=== PATIENT | male | born 1970 | race African-American/Black ===

== ENCOUNTER 2017-03-26 08:25 | Emergency (ER) | payer SELFPAY ==
[2017-03-26 08:33] VITALS: BP 128/85
[2017-03-26 09:10] LABS: APPEARANCE,URINE CLEAR; BILIRUBIN,URINE NEGATIVE (NEGATIVE); GLUCOSE, URINE NEGATIVE (NEGATIVE); KETONES,URINE NEGATIVE (NEGATIVE); LEUKOCYTE ESTERASE,URINE NEGATIVE (NEGATIVE); NITRITE,URINE NEGATIVE (NEGATIVE); PROTEIN,URINE >=500 mg/dL (NEGATIVE); URINE SPECIFIC GRAVITY 1.017; UROBILINOGEN,URINE NEGATIVE mg/dL (<2.0)
[2017-03-26] MEDS ORDERED: KETOROLAC TROMETHAMINE 60 MG/2 ML SDV IM ONE (10:21)
--- NOTE | 2017-03-26 10:33 | ER Document Report ---
ED Neck/Back Problem - General Chief Complaint: Back Pain Stated Complaint: BACK PAIN Time Seen by Provider: 03/26/17 09:51 Notes: 46 yo male c/o low back pain x 2 weeks. reports pain goes across his lower back. denies radiculopathy or paresthesias. no fever. no bowel/bladder dysfunction. pt denies any hx/o of cancer or recent tattoos. denies any trauma. pt was seen in a local urgent care for same, treated with muscle relaxants without relief. pt denies any difficutly walking. says pain is worse at night. - HPI Patient complains to provider of: Pain Onset: Other - 2 wk Onset: Gradual Timing: Constant Quality of pain: Achy Recent injury: No Associated symptoms: None, Lower back pain. denies: Chills, Fever, Incontinence , Motor loss, Numbness/tingling, Radiation to leg, Sensory loss, Unable to urinate Exacerbated by: Other - movement, changing postions Relieved by: Nothing Similar symptoms previously: Yes Recently seen / treated by doctor: Yes - urgent care Past Medical History - General Information source: Patient - Social History Smoking Status: Current Every Day Smoker Chew tobacco use (# tins/day): No Frequency of alcohol use: Social Drug Abuse: Marijuana Lives with: Family Family History: Reviewed & Not Pertinent - Past Medical History Cardiac Medical History: Reports: Other - pacer for bradycardia Renal/ Medical History: Denies: Hx Peritoneal Dialysis Past Surgical History: Reports: Hx Cardiac Surgery - PACEMAKER - Immunizations Hx Diphtheria, Pertussis, Tetanus Vaccination: No Review of Systems - Review of Systems Constitutional: No symptoms reported EENT: No symptoms reported Cardiovascular: No symptoms reported Respiratory: No symptoms reported Gastrointestinal: No symptoms reported Genitourinary: No symptoms reported Male Genitourinary: No symptoms reported Musculoskeletal: See HPI Skin: No symptoms reported Hematologic/Lymphatic: No symptoms reported Neurological/Psychological: No symptoms reported Physical Exam - Vital signs Vitals: Temp Pulse Resp BP Pulse Ox 98.6 F 64 18 128/85 H 98 03/26/17 08:30 03/26/17 08:30 03/26/17 08:30 03/26/17 08:30 03/26/17 08:30 Interpretation: Normal - General General appearance: Appears well, Alert - HEENT Head: Normocephalic, Atraumatic Eyes: Normal Pupils: PERRL - Respiratory Respiratory status: No respiratory distress Chest status: Nontender Breath sounds: Normal Chest palpation: Normal - Cardiovascular Rhythm: Regular Heart sounds: Normal auscultation Murmur: No - Abdominal Inspection: Normal Distension: No distension Bowel sounds: Normal Tenderness: Nontender Organomegaly: No organomegaly - Back Back: Tender - bilat lumbar paraspinal tenderness. no vertebral tenderness. neg SLT.. No: CVA tenderness, Vertebra tenderness - Extremities General upper extremity: Normal inspection, Nontender, Normal color, Normal ROM , Normal temperature General lower extremity: Normal inspection, Nontender, Normal color, Normal ROM , Normal temperature, Normal weight bearing. No: Sonya's sign - Neurological Neuro grossly intact: Yes Cognition: Normal Orientation: AAOx4 [place] Coma Scale Eye Opening: Spontaneous Simeon Coma Scale Verbal: Oriented [place] Coma Scale Motor: Obeys Commands Simeon Coma Scale Total: 15 Speech: Normal Motor strength normal: LUE, RUE, LLE, RLE Sensory: Normal - Psychological Associated symptoms: Normal affect, Normal mood - Skin Skin Temperature: Warm Skin Moisture: Dry Skin Color: Normal Course - Re-evaluation Re-evalutation: 03/26/17 10:35 46 yo healthy male with low back pain. no vertebral tenderness. pt has no s/s of spinal cord compression, cauda equina, infection, anerysm or other serious etiology. pt is neurologically intact, independently and steadily ambulatory without paresthesia. Geven the extremely low risk of these diagnoses, further testing is not indicated. Home care, F/u with PCM, ED return precautiions discussed with pt. pt verbalizes understanding and agrees with plan. short course of pain med, muscle relaxant and anti inflammatory med provided. pt stable for discharge 03/26/17 10:57 urinalysis significant for large protein. this finding discussed with Dr Mills who agrees there is no relation with proteinuria and pt's symptoms. pt is exhibiting no s/s rhabdomyolisis, has no hx of DM or renal dysfunction. pt has not CVAT. pt made aware of finding and recommended f/u with PCM for repeat urinalysis. pt acknowledges understanding - Vital Signs Vital signs: Temp Pulse Resp BP Pulse Ox 98.6 F 64 18 128/85 H 98 03/26/17 08:30 03/26/17 08:30 03/26/17 08:30 03/26/17 08:30 03/26/17 08:30 - Laboratory Laboratory results interpreted by me: 03/26/17 08:50 Urine Protein >=500 H Discharge - Discharge Clinical Impression: Low back pain Qualifiers: Chronicity: acute Back pain laterality: bilateral Sciatica presence: without sciatica Qualified Code(s): M54.5 - Low back pain Condition: Stable Disposition: HOME, SELF-CARE Instructions: Ice Packs ([facility]), Low Back Pain ([facility]), Muscle Relaxers ([facility]), Oral Narcotic Medication ([facility]), Toradol Injection ([facility]), Warm Packs ([facility]) Additional Instructions: Your back pain seems muscular in origin. Medications will focus on muscle inflammation Alternate ice/heat to sore areas Take pain medications sparingly only for severe pain Follow up with your primary care for further evaluation if pain persists Your urinalysis shows high protein today Please follow up with your primary care for further evaluation of this finding I do not think this is related to the discomfort you are having today Prescriptions: Hydrocodone/Acetaminophen [Ambrose 5-325 mg Tablet] 1 tab PO Q4H PRN #10 tablet PRN Reason: Ibuprofen [Motrin 800 Mg Tablet] 800 mg PO Q6H #20 tablet Methocarbamol [Robaxin 500 Mg Tablet] 1,000 mg PO Q6 #30 tablet
== END 2017-03-26 10:44 | disposition home or self-care (01) ==
LOC: ER 08:25
DX: M54.5 Low back pain (principal); F17.200 Nicotine dependence, unspecified, uncomplicated
CPT/HCPCS: 99283; 96372; 81001; J1885

== ENCOUNTER → 2017-09-10 | Outpatient (CLI) | payer SELFPAY ==
[2017-09-10 10:10] LABS: ARTERIAL BLOOD BASE EXCESS 1.5 mmol/L; ARTERIAL BLOOD H2CO3 0.99 mmol/L (1.05-1.35); ARTERIAL BLOOD HCO3 24.5 mmol/L (20-26); ARTERIAL BLOOD O2 SATURATION 98.8 % (94-98); ARTERIAL BLOOD PH 7.49 (7.35-7.45); ARTERIAL BLOOD PO2 128.2 mmHg (80-100); ARTERIAL BLOOD TOTAL CO2 25.5 mmol/L (23-27)
[2017-09-10 10:42] LABS: ARTERIAL BLOOD FIO2 ROOM AIR
--- NOTE | 2017-09-15 08:37 | PULMONARY FUNCTION TEST ---
DATE OF SERVICE: 09/10/2017 THE VITAL CAPACITY IS NORMAL. THE EXPIRATORY FLOW RATES ARE NORMAL. THE FEV1/VC IS 79%, PREDICTED: 80% LUNG VOLUMES BY NITROGEN WASH OUT METHOD SHOW: TLC IS 89% OF PREDICTED FRC IS 99% OF PREDICTED RV IS 55% OF PREDICTED THE DLCO IS 19.4, 58% OF PREDICTED. THE RV/TLC RATIO IS 19% PREDICTED 32% IMPRESSION: GOOD PATIENT EFFORT. ALTHOUGH THE VC AND FEV1 ARE BOTH NORMAL, THE DECREASE IN FEV1/VC SUGGESTS A SLIGHT OBSTRUCTIVE DEFECT. LUNG VOLUMES ARE NORMAL DIFFUSING CAPACITY IS MODERATELY DECREASED. CC: HEATH GONZALES MD > MEREDITH
== END ==
LOC: RT 08:46
PROVIDERS: ATTEND Internal Medicine Hematology & Oncology
DX: Z13.83 Encounter for screening for respiratory disorder NEC (principal); R06.02 Shortness of breath; C81.90 Hodgkin lymphoma, unspecified, unspecified site; R91.8 Other nonspecific abnormal finding of lung field; Z95.0 Presence of cardiac pacemaker; D57.3 Sickle-cell trait
CPT/HCPCS: 36600; 82803; 94010; 94727; 94729

== ENCOUNTER 2017-09-16 09:42 | Outpatient (CLI) | payer SELFPAY ==
[~2017-09-16 09:42] MED LIST: BLEOMYCIN SULFATE 2 UNIT in NORMAL SALINE 50 ML IV PRN; BLEOMYCIN SULFATE IV PRN; DACARBAZINE IV PRN; DEXAMETHASONE SOD PHOS INJ 10 MG/1 ML VIAL IV PRN; DISPOSABLE IV PRN; DOXORUBICIN HCL IV PRN; FOSAPREPITANT DIMEGLUMINE 150 MG in NORMAL SALINE 150 ML IV PRN; NORMAL SALINE 250 ML IV PRN; NORMAL SALINE IV PRN; PALONOSETRON 0.25 MG/5 ML SDV IV PRN; VINBLASTINE SULFATE IV PRN
[2017-09-16] MEDS ORDERED: BLEOMYCIN SULFATE IV PRN (10:00)
[2017-09-16] MEDS ORDERED: NORMAL SALINE IV PRN (10:00)
[2017-09-16 10:32] VITALS: BP 126/84
[2017-09-16 10:39] LABS: ALANINE AMINOTRANSFERASE 11 U/L (21-72); ALBUMIN 2.4 g/dL (3.5-5.0); ALKALINE PHOSPHATASE 222 U/L (38-126); ANION GAP 7 (5-19); ASPARTATE AMINO TRANSFERASE 11 U/L (17-59); BILIRUBIN,DIRECT 0.1 mg/dL (0.0-0.4); BILIRUBIN,TOTAL 0.1 mg/dL (0.2-1.3); BLOOD UREA NITROGEN 16 mg/dL (7-20); CALCIUM 8.2 mg/dL (8.4-10.2); CARBON DIOXIDE 27 mmol/L (22-30); CHLORIDE 105 mmol/L (98-107); GLUCOSE 129 mg/dL (75-110); POTASSIUM 3.8 mmol/L (3.6-5.0); SODIUM 138.9 mmol/L (137-145); TOTAL PROTEIN 5.4 g/dL (6.3-8.2)
== END 2017-09-16 18:28 | disposition home or self-care (01) ==
LOC: II 09:42 → 5TH 09:46 → II 18:28
PROVIDERS: ATTEND Internal Medicine Hematology & Oncology
PROC: 3E03305 Introduction of Other Antineoplastic into Peripheral Vein, Percutaneous Approach (ICD-10-PCS; principal; 2017-09-16)
PROC: 3E0333Z Introduction of Anti-inflammatory into Peripheral Vein, Percutaneous Approach (ICD-10-PCS; 2017-09-16)
PROC: 3E033GC Introduction of Other Therapeutic Substance into Peripheral Vein, Percutaneous Approach (ICD-10-PCS; 2017-09-16)
DX: Z51.11 Encounter for antineoplastic chemotherapy (principal); C81.98 Hodgkin lymphoma, unspecified, lymph nodes of multiple sites
CPT/HCPCS: 36415; 80053; 96409; 96411; 96413; 96415; 96367; 96375; J9000; J9130; J9040; J9360; J7050; J3490; J1100; J1453; J2469; 96417

== ENCOUNTER 2017-09-29 11:04 | Day surgery (SDC) | payer MEDICAID ==
[~2017-09-29 11:04] MED LIST changes: -BLEOMYCIN SULFATE 2 UNIT in NORMAL SALINE 50 ML IV PRN; -BLEOMYCIN SULFATE IV PRN; +CLINDAMYCIN 600 MG/D5W RTU 600 MG/50 ML RTUPB IV PRN; -DACARBAZINE IV PRN; -DEXAMETHASONE SOD PHOS INJ 10 MG/1 ML VIAL IV PRN; +DEXTROSE 5%-1/2 NORMAL SALINE 1,000 ML IV PRN; +DIAZEPAM 5 MG TABLET PO PRN; -DISPOSABLE IV PRN; -DOXORUBICIN HCL IV PRN; -FOSAPREPITANT DIMEGLUMINE 150 MG in NORMAL SALINE 150 ML IV PRN; -NORMAL SALINE 250 ML IV PRN; -NORMAL SALINE IV PRN; +OXYCODONE-ACETAMINOPHEN 5-325 MG TABLET PO PRN; -PALONOSETRON 0.25 MG/5 ML SDV IV PRN; -VINBLASTINE SULFATE IV PRN
--- NOTE | 2017-09-29 12:48 | RADIOLOGY REPORT (SQ) ---
EXAM DESCRIPTION: CHEST SINGLE VIEW COMPLETED DATE/TIME: 09/29/2017 12:34 pm REASON FOR STUDY: PREOP COMPARISON: None. EXAM PARAMETERS: NUMBER OF VIEWS: One view. TECHNIQUE: Single frontal radiographic view of the chest acquired. RADIATION DOSE: NA LIMITATIONS: None. FINDINGS: LUNGS AND PLEURA: Focal scarring in the right upper lobe. No opacities, masses or pneumot horax. No pleural effusion. MEDIASTINUM AND HILAR STRUCTURES: No masses. Contour normal. HEART AND VASCULAR STRUCTURES: Heart normal in size. Normal vasculature. BONES: No acute findings. HARDWARE: Pacemaker. OTHER: No other significant finding. IMPRESSION: NO ACUTE RADIOGRAPHIC FINDING IN THE CHEST. TECHNICAL DOCUMENTATION: JOB ID: [id number] [employer]- All Rights Reserved Reading location - IP/workstation name: [email or web address]
[2017-09-29 12:54] LABS: HEMATOCRIT 32.2 % (37.9-51.0); HEMOGLOBIN 10.5 g/dL (13.5-17.0); MEAN CORPUSCULAR HEMOGLOBIN 23.3 pg (27.0-33.4); MEAN CORPUSCULAR HGB CONC 32.8 g/dL (32.0-36.0); MEAN CORPUSCULAR VOLUME 71 fl (80-97); PLATELET COUNT 293 10^3/uL (150-450); RED BLOOD COUNT 4.52 10^6/uL (4.35-5.55); RED CELL DISTRIBUTION WIDTH 18.5 % (11.5-14.0)
[2017-09-29 13:14] LABS: ANION GAP 6 (5-19); BLOOD UREA NITROGEN 14 mg/dL (7-20); CARBON DIOXIDE 27 mmol/L (22-30); CHLORIDE 109 mmol/L (98-107); GLUCOSE 101 mg/dL (75-110); POTASSIUM 4.5 mmol/L (3.6-5.0); SODIUM 141.6 mmol/L (137-145)
[2017-09-29] MEDS ORDERED: BACITRACIN INJ 50,000 UNIT VIAL ONE (13:51)
[2017-09-29] MEDS ORDERED: LIDOCAINE 0.5% INJ-PF (5 MG/ML) 50 ML SDV ONE (13:51)
[2017-09-29] MEDS ORDERED: FENTANYL CITRATE INJ/PF 100 MCG/2 ML AMPUL ONE (13:51)
[2017-09-29] MEDS ORDERED: MIDAZOLAM 2 MG/2 ML INJ ONE (13:51)
--- NOTE | 2017-09-29 15:13 | Discharge Summary ---
Discharge Summary (SDC) - Discharge Final Diagnosis: #1 Hodgkin's disease. 2. Hypertension. Date of Surgery: 09/29/17 Discharge Date: 09/29/17 Condition: Good Treatment or Instructions: Discharge home [after recovery per ASU criteria]. Diet , as tolerated, when fully awake advance as tolerated. Activities within moderation encouraged. Follow up in my office by appointment in about [1 week]. Call for appointment. Leave wounds [covered], [keep clean and dry, until office visit in 1 week]. Meds per med rec. Percocet. Hold of on school/work [until evaluation in office]. May shower [in 48 hrs], [try to keep operated area as dry as possible]. Prescriptions: Oxycodone HCl/Acetaminophen [Percocet 5-325 mg Tablet] 1 tab PO ASDIR PRN #15 tab PRN Reason: Referrals: JOHNNY JAIME MD [Primary Care Provider] - Discharge Diet: As Tolerated Respiratory Treatments at Home: Deep Breathing/Coughing Discharge Activity: Activity As Tolerated Report the Following to Your Physician Immediately: Shortness of Breath, Unusual Bleeding
--- NOTE | 2017-09-29 15:15 | Operative Report ---
Operative Report DATE OF SURGERY: 09/29/17 PREOPERATIVE DIAGNOSIS: #1 Hodgkin's disease. 2. Hypertension. POSTOPERATIVE DIAGNOSIS: #1 Hodgkin's disease. 2. Hypertension. OPERATION: 1. Ultrasound evaluation of right internal jugular vein. 2. Insertion of Port-A-Cath via real-time access in right internal jugular vein. 3. Angiogram and interpretation. SURGEON: SUMANTH RAMACHANDRAN INDUSTRIAL SPRAYPAINTER: None. ANESTHESIA: Moderate Sedation TISSUE REMOVED OR ALTERED: Not applicable. COMPLICATIONS: None. ESTIMATED BLOOD LOSS: 5 mL. INTRAOPERATIVE FINDINGS: Satisfactory right internal jugular vein to support Port-A-Cath. Good position and function with tip of catheter just down in the right atrium. Smooth flow of contrast through the port, superior vena cava and right atrium. PROCEDURE: After obtaining informed consent, the patient was taken to the Advertising Strategist and positioned supine. The [right] neck and chest were prepared with chlorhexidine and draped out with sterile linen. After the " universal timeout", in which it was verified that the patient continued to receive antibiotic, the procedure commenced. A steriley sheathed ultrasound probe was used to evaluate the [ right] internal jugular vein. Local anesthesia was infiltrated adjacent to the probe. Access into the [right] internal jugular vein was obtained using a micropuncture needle, followed by micropuncture wire and then a micropuncture catheter. This was followed by introduction of a 0.035 guidewire the tip of which was placed down into the inferior vena cava . The port sites was marked , locally anesthetized and incision made. Dissection now proceeded to the deep subcutaneous subcutaneous tissues so that a pocket for the port was made. Meticulous hemostasis was secured and the catheter was tunneled between the 2 incisions. Proximally, the catheter was now positioned using a peel-away sheath. Distally the catheter was tailored to an appropriate length and then mated to the port using the contained fixating device. The port was now placed in the pocket and the catheter optimally positioned. The port was accessed with a Lopez needle and an angiogram done under digital subtraction. The findings as dictated. With adequate and satisfactory positioning, both lumens of the chamber were irrigated with heparinized solution. The wounds were now closed using interrupted 3-0 PDS to the subcutaneous tissues and a continuous subcuticular suture of 4-0 Monocryl to the skin. These are reinforced with Steri-Strips over benzoin and then dressings applied. Time: 0.0 minute. Dose: 6.32 m Gy Contrast: 5 mls. Isovue 300. Copies of the dictated operative report for Dr. Sumanth Acharya MD.
--- NOTE | 2017-09-29 15:33 | RADIOLOGY REPORT (SQ) ---
EXAM DESCRIPTION: PORTACATH INSERTION COMPLETED DATE/TIME: 09/29/2017 2:48 pm REASON FOR STUDY: C81.98 HODGKIN LYMPHOMA C81.98 HODGKIN LYMPHOMA, UNSPECIFIED, LYMPH NODES OF MULT IPL COMPARISON: AP chest 09/29/2017 FLUORO TIME: Less than 5 seconds 7 series of digital images saved to PACS. LIMITATIONS: None. PROCEDURE: Intra procedural imaging and fluoro during placement of a right-sided permanent central l ine with the tip in the superior vena cava. Please see the operative report for further details IMPRESSION: Intra procedural imaging and fluoro during placement of a right-sided permanent central line by Dr. Acharya. COMMENT: Quality ID [id number]: Final reports for procedures using fluoroscopy that document radiation exp osure indices, or exposure time and number of fluorographic images (if radiation exposure indices are not available) TECHNICAL DOCUMENTATION: JOB ID: [id number] [employer]- All Rights Reserved Reading location - IP/workstation name: [email or web address]
[2017-09-29 16:09] VITALS: BP 119/83
== END 2017-09-29 16:00 | disposition home or self-care (01) ==
LOC: CCL 11:04
PROVIDERS: ATTEND Surgery
PROC: 05HM33Z Insertion of Infusion Device into Right Internal Jugular Vein, Percutaneous Approach (ICD-10-PCS; principal; 2017-09-29)
DX: C81.98 Hodgkin lymphoma, unspecified, lymph nodes of multiple sites (principal); I10 Essential (primary) hypertension; R00.1 Bradycardia, unspecified; D57.3 Sickle-cell trait; Z88.0 Allergy status to penicillin; Z79.891 Long term (current) use of opiate analgesic; Z79.899 Other long term (current) drug therapy; Z95.0 Presence of cardiac pacemaker
CPT/HCPCS: 36415; 85027; 80048; 36561; 76937; 77001; 71045; C1752; C1788; Q9967; J2250; J3490 ×2; J3010; J1644

== ENCOUNTER 2017-09-30 08:20 | Outpatient (CLI) | payer SELFPAY ==
[~2017-09-30 08:20] MED LIST changes: +BLEOMYCIN SULFATE 2 UNIT in NORMAL SALINE 50 ML IV PRN; +BLEOMYCIN SULFATE IV PRN; -CLINDAMYCIN 600 MG/D5W RTU 600 MG/50 ML RTUPB IV PRN; +DACARBAZINE IV PRN; +DEXAMETHASONE SOD PHOS INJ 10 MG/1 ML VIAL IV PRN; -DEXTROSE 5%-1/2 NORMAL SALINE 1,000 ML IV PRN; -DIAZEPAM 5 MG TABLET PO PRN; +DISPOSABLE IV PRN; +DOXORUBICIN HCL IV PRN; +FOSAPREPITANT DIMEGLUMINE 150 MG in NORMAL SALINE 150 ML IV PRN; +NORMAL SALINE 250 ML IV PRN; +NORMAL SALINE IV PRN; -OXYCODONE-ACETAMINOPHEN 5-325 MG TABLET PO PRN; +PALONOSETRON 0.25 MG/5 ML SDV IV PRN; +VINBLASTINE SULFATE IV PRN
[2017-09-30 08:37] LABS: ABSOLUTE EOSINOPHILS # (AUTO) 0.4 10^3/uL (0.0-0.6); ABSOLUTE LYMPHOCYTES (AUTO) 1.1 10^3/uL (0.5-4.7); ABSOLUTE MONOCYTES (AUTO) 0.4 10^3/uL (0.1-1.4); ABSOLUTE NEUT (AUTO) 1.1 10^3/uL (1.7-8.2); BASOPHILS % (AUTO) 0.5 % (0-2); EOSINOPHILS % (AUTO) 12.1 % (0-6); HEMATOCRIT 34.3 % (37.9-51.0); HEMOGLOBIN 11.1 g/dL (13.5-17.0); LYMPHOCYTES % (AUTO) 36.3 % (13-45); MEAN CORPUSCULAR HEMOGLOBIN 23.1 pg (27.0-33.4); MEAN CORPUSCULAR HGB CONC 32.4 g/dL (32.0-36.0); MEAN CORPUSCULAR VOLUME 71 fl (80-97); MONOCYTES % (AUTO) 14.2 % (3-13); PLATELET COUNT 305 10^3/uL (150-450); RED BLOOD COUNT 4.81 10^6/uL (4.35-5.55); RED CELL DISTRIBUTION WIDTH 18.6 % (11.5-14.0); SEGMENTED NEUTROPHILS % (AUTO) 36.9 % (42-78); TOTAL CELLS COUNTED % (AUTO) 100 %
[2017-09-30 08:53] LABS: WHITE BLOOD COUNT 2.9 10^3/uL (4.0-10.5)
[2017-09-30 09:58] VITALS: BP 138/84
== END 2017-09-30 10:41 | disposition home or self-care (01) ==
LOC: II 08:20 → 5TH 09:10 → II 10:41
PROVIDERS: ATTEND Internal Medicine Hematology & Oncology
DX: Z51.11 Encounter for antineoplastic chemotherapy (principal); C81.98 Hodgkin lymphoma, unspecified, lymph nodes of multiple sites; Z53.8 Procedure and treatment not carried out for other reasons
CPT/HCPCS: 36415; 85025; J1100; J1453; J2469; J3490; J7050; J9000; J9040; J9130; J9360

== ENCOUNTER 2017-10-14 08:48 | Outpatient (CLI) | payer SELFPAY ==
[2017-10-14 09:17] LABS: ABSOLUTE BASOPHILS # (AUTO) 0.1 10^3/uL (0.0-0.2); ABSOLUTE EOSINOPHILS # (AUTO) 0.2 10^3/uL (0.0-0.6); ABSOLUTE LYMPHOCYTES (AUTO) 1.7 10^3/uL (0.5-4.7); ABSOLUTE MONOCYTES (AUTO) 0.6 10^3/uL (0.1-1.4); BASOPHILS % (AUTO) 1.3 % (0-2); HEMATOCRIT 38.3 % (37.9-51.0); HEMOGLOBIN 12.8 g/dL (13.5-17.0); LYMPHOCYTES % (AUTO) 37.2 % (13-45); MEAN CORPUSCULAR HEMOGLOBIN 24.3 pg (27.0-33.4); MEAN CORPUSCULAR HGB CONC 33.5 g/dL (32.0-36.0); MEAN CORPUSCULAR VOLUME 73 fl (80-97); MONOCYTES % (AUTO) 12.8 % (3-13); PLATELET COUNT 271 10^3/uL (150-450); RED BLOOD COUNT 5.29 10^6/uL (4.35-5.55); RED CELL DISTRIBUTION WIDTH 20.4 % (11.5-14.0); SEGMENTED NEUTROPHILS % (AUTO) 44.7 % (42-78); TOTAL CELLS COUNTED % (AUTO) 100 %; WHITE BLOOD COUNT 4.4 10^3/uL (4.0-10.5)
[2017-10-14 09:29] VITALS: BP 126/75
[2017-10-14 09:35] LABS: ALANINE AMINOTRANSFERASE 44 U/L (21-72); ALBUMIN 4.1 g/dL (3.5-5.0); ALKALINE PHOSPHATASE 112 U/L (38-126); ANION GAP 12 (5-19); ASPARTATE AMINO TRANSFERASE 22 U/L (17-59); BILIRUBIN,DIRECT 0.2 mg/dL (0.0-0.4); BILIRUBIN,TOTAL 0.3 mg/dL (0.2-1.3); BLOOD UREA NITROGEN 14 mg/dL (7-20); CALCIUM 9.8 mg/dL (8.4-10.2); CARBON DIOXIDE 23 mmol/L (22-30); CHLORIDE 108 mmol/L (98-107); GLUCOSE 116 mg/dL (75-110); POTASSIUM 4.2 mmol/L (3.6-5.0); SODIUM 142.7 mmol/L (137-145)
== END 2017-10-14 15:27 | disposition home or self-care (01) ==
LOC: II 08:48 → 5TH 08:53 → II 15:27
PROVIDERS: ATTEND Internal Medicine Hematology & Oncology
PROC: 3E04305 Introduction of Other Antineoplastic into Central Vein, Percutaneous Approach (ICD-10-PCS; principal; 2017-10-14)
PROC: 3E0433Z Introduction of Anti-inflammatory into Central Vein, Percutaneous Approach (ICD-10-PCS; 2017-10-14)
PROC: 3E043GC Introduction of Other Therapeutic Substance into Central Vein, Percutaneous Approach (ICD-10-PCS; 2017-10-14)
DX: Z51.11 Encounter for antineoplastic chemotherapy (principal); C81.98 Hodgkin lymphoma, unspecified, lymph nodes of multiple sites
CPT/HCPCS: 36415; 85025; 80053; 96409; 96411; 96413; 96415; 96367; 96375; J9000; J9130; J9040; J9360; J7050; J3490; J1100; J1453; J2469; 96417

== ENCOUNTER 2017-10-15 15:26 | Outpatient (CLI) | payer SELFPAY ==
[~2017-10-15 15:26] MED LIST changes: -BLEOMYCIN SULFATE 2 UNIT in NORMAL SALINE 50 ML IV PRN; -BLEOMYCIN SULFATE IV PRN; -DACARBAZINE IV PRN; -DEXAMETHASONE SOD PHOS INJ 10 MG/1 ML VIAL IV PRN; -DISPOSABLE IV PRN; -DOXORUBICIN HCL IV PRN; -FOSAPREPITANT DIMEGLUMINE 150 MG in NORMAL SALINE 150 ML IV PRN; -NORMAL SALINE 250 ML IV PRN; -NORMAL SALINE IV PRN; -PALONOSETRON 0.25 MG/5 ML SDV IV PRN; +PEGFILGRASTIM INJ 6 MG/0.6 ML DISP.SYRIN SUBCUT PRN; -VINBLASTINE SULFATE IV PRN
[2017-10-15 15:50] VITALS: BP 124/76
== END 2017-10-15 16:08 | disposition home or self-care (01) ==
LOC: II 15:26 → 5TH 15:36 → II 16:08
PROVIDERS: ATTEND Internal Medicine Hematology & Oncology
PROC: 3E013GC Introduction of Other Therapeutic Substance into Subcutaneous Tissue, Percutaneous Approach (ICD-10-PCS; principal; 2017-10-15)
DX: Z76.89 Persons encountering health services in other specified circumstances (principal); C81.98 Hodgkin lymphoma, unspecified, lymph nodes of multiple sites; D70.1 Agranulocytosis secondary to cancer chemotherapy
CPT/HCPCS: 96372; J2505

== ENCOUNTER 2017-10-28 09:06 | Outpatient (CLI) | payer SELFPAY ==
[~2017-10-28 09:06] MED LIST changes: +BLEOMYCIN SULFATE IV PRN; +DACARBAZINE IV PRN; +DEXAMETHASONE SOD PHOSPHATE 10 MG in NORMAL SALINE 50 ML IV PRN; +DISPOSABLE IV PRN; +DOXORUBICIN HCL IV PRN; +FOSAPREPITANT DIMEGLUMINE 150 MG in NORMAL SALINE 150 ML IV PRN; +NORMAL SALINE 250 ML IV PRN; +NORMAL SALINE IV PRN; +PALONOSETRON 0.25 MG/5 ML SDV IV PRN; -PEGFILGRASTIM INJ 6 MG/0.6 ML DISP.SYRIN SUBCUT PRN; +VINBLASTINE SULFATE IV PRN
[2017-10-28 10:03] LABS: HEMATOCRIT 37.9 % (37.9-51.0); HEMOGLOBIN 12.5 g/dL (13.5-17.0); MEAN CORPUSCULAR HEMOGLOBIN 24.6 pg (27.0-33.4); MEAN CORPUSCULAR HGB CONC 33.1 g/dL (32.0-36.0); MEAN CORPUSCULAR VOLUME 74 fl (80-97); PLATELET COUNT 145 10^3/uL (150-450); RED CELL DISTRIBUTION WIDTH 21.1 % (11.5-14.0); WHITE BLOOD COUNT 7.7 10^3/uL (4.0-10.5)
[2017-10-28 10:11] LABS: ALANINE AMINOTRANSFERASE 36 U/L (21-72); ALBUMIN 4.1 g/dL (3.5-5.0); ALKALINE PHOSPHATASE 91 U/L (38-126); ANION GAP 9 (5-19); ASPARTATE AMINO TRANSFERASE 19 U/L (17-59); BILIRUBIN,DIRECT 0.2 mg/dL (0.0-0.4); BILIRUBIN,TOTAL 0.2 mg/dL (0.2-1.3); BLOOD UREA NITROGEN 8 mg/dL (7-20); CALCIUM 9.5 mg/dL (8.4-10.2); CARBON DIOXIDE 24 mmol/L (22-30); CHLORIDE 110 mmol/L (98-107); GLUCOSE 111 mg/dL (75-110); POTASSIUM 4.4 mmol/L (3.6-5.0); SODIUM 143.3 mmol/L (137-145); TOTAL PROTEIN 6.7 g/dL (6.3-8.2)
[2017-10-28 10:44] LABS: ABSOLUTE LYMPHOCYTES# (MANUAL) 1.3 10^3/uL (0.5-4.7); ABSOLUTE MONOCYTES # (MANUAL) 0.5 10^3/uL (0.1-1.4); ABSOLUTE NEUTROPHILS# (MANUAL) 5.3 10^3/uL (1.7-8.2); BAND NEUTROPHILS % (MANUAL) 6 % (3-5); BASOPHILS % (MANUAL) 1 % (0-2); EOSINOPHILS % (MANUAL) 6 % (0-6); LYMPHOCYTES % (MANUAL) 16 % (13-45); METAMYELOCYTES % (MANUAL) 1 % (0); MONOCYTES % (MANUAL) 7 % (3-13); SEGMENTED NEUTROPHILS % (MAN) 62 % (42-78); TOTAL CELLS COUNTED 100
[2017-10-28 10:45] LABS: HYPOCHROMASIA SLIGHT; PLATELET COMMENT ADEQUATE; POLYCHROMASIA SLIGHT; TOXIC GRANULATION SLIGHT
[2017-10-28 11:10] VITALS: BP 132/70
== END 2017-10-28 14:54 | disposition home or self-care (01) ==
LOC: II 09:06 → 5TH 10:18 → II 14:54
PROVIDERS: ATTEND Internal Medicine Hematology & Oncology
PROC: 3E04305 Introduction of Other Antineoplastic into Central Vein, Percutaneous Approach (ICD-10-PCS; principal; 2017-10-28)
PROC: 3E0433Z Introduction of Anti-inflammatory into Central Vein, Percutaneous Approach (ICD-10-PCS; 2017-10-28)
PROC: 3E043GC Introduction of Other Therapeutic Substance into Central Vein, Percutaneous Approach (ICD-10-PCS; 2017-10-28)
DX: Z51.11 Encounter for antineoplastic chemotherapy (principal); C81.98 Hodgkin lymphoma, unspecified, lymph nodes of multiple sites
CPT/HCPCS: 36415; 85025; 80053; 96409; 96411; 96413; 96415; 96367; 96375; J9000; J9130; J9040; J9360; J7050; J3490; J1100; J1453; J2469; 96417

== ENCOUNTER 2017-10-29 15:03 | Outpatient (CLI) | payer SELFPAY ==
[~2017-10-29 15:03] MED LIST changes: -BLEOMYCIN SULFATE IV PRN; -DACARBAZINE IV PRN; -DEXAMETHASONE SOD PHOSPHATE 10 MG in NORMAL SALINE 50 ML IV PRN; -DISPOSABLE IV PRN; -DOXORUBICIN HCL IV PRN; -FOSAPREPITANT DIMEGLUMINE 150 MG in NORMAL SALINE 150 ML IV PRN; -NORMAL SALINE 250 ML IV PRN; -NORMAL SALINE IV PRN; -PALONOSETRON 0.25 MG/5 ML SDV IV PRN; +PEGFILGRASTIM INJ 6 MG/0.6 ML DISP.SYRIN SUBCUT PRN; -VINBLASTINE SULFATE IV PRN
[2017-10-29 15:20] VITALS: BP 127/71
== END 2017-10-29 15:47 | disposition home or self-care (01) ==
LOC: II 15:03 → 5TH 15:46 → II 15:47
PROVIDERS: ATTEND Internal Medicine Hematology & Oncology
PROC: 3E013GC Introduction of Other Therapeutic Substance into Subcutaneous Tissue, Percutaneous Approach (ICD-10-PCS; principal; 2017-10-29)
DX: Z76.89 Persons encountering health services in other specified circumstances (principal); C81.98 Hodgkin lymphoma, unspecified, lymph nodes of multiple sites; D70.1 Agranulocytosis secondary to cancer chemotherapy
CPT/HCPCS: 96372; J2505

== ENCOUNTER 2017-11-11 07:42 | Outpatient (CLI) | payer MEDICAID ==
[~2017-11-11 07:42] MED LIST changes: +BLEOMYCIN SULFATE 2 UNIT in NORMAL SALINE 50 ML IV PRN; +BLEOMYCIN SULFATE IV PRN; +DACARBAZINE IV PRN; +DEXAMETHASONE SOD PHOS INJ 10 MG/1 ML VIAL IV PRN; +DISPOSABLE IV PRN; +DOXORUBICIN HCL IV PRN; +FOSAPREPITANT DIMEGLUMINE 150 MG in NORMAL SALINE 150 ML IV PRN; +NORMAL SALINE 250 ML IV PRN; +NORMAL SALINE IV PRN; +PALONOSETRON 0.25 MG/5 ML SDV IV PRN; -PEGFILGRASTIM INJ 6 MG/0.6 ML DISP.SYRIN SUBCUT PRN; +VINBLASTINE SULFATE IV PRN
[2017-11-11 08:25] VITALS: BP 142/72
[2017-11-11 08:32] LABS: HEMATOCRIT 37.4 % (37.9-51.0); HEMOGLOBIN 12.6 g/dL (13.5-17.0); MEAN CORPUSCULAR HEMOGLOBIN 25.2 pg (27.0-33.4); MEAN CORPUSCULAR HGB CONC 33.8 g/dL (32.0-36.0); MEAN CORPUSCULAR VOLUME 75 fl (80-97); PLATELET COUNT 211 10^3/uL (150-450); RED BLOOD COUNT 5.02 10^6/uL (4.35-5.55); RED CELL DISTRIBUTION WIDTH 20.8 % (11.5-14.0); WHITE BLOOD COUNT 8.7 10^3/uL (4.0-10.5)
[2017-11-11 09:09] LABS: ABSOLUTE LYMPHOCYTES# (MANUAL) 1.9 10^3/uL (0.5-4.7); ABSOLUTE MONOCYTES # (MANUAL) 0.8 10^3/uL (0.1-1.4); ABSOLUTE NEUTROPHILS# (MANUAL) 5.8 10^3/uL (1.7-8.2); BAND NEUTROPHILS % (MANUAL) 2 % (3-5); BASOPHILS % (MANUAL) 2 % (0-2); EOSINOPHILS % (MANUAL) 0 % (0-6); LYMPHOCYTES % (MANUAL) 22 % (13-45); METAMYELOCYTES % (MANUAL) 1 % (0); MONOCYTES % (MANUAL) 9 % (3-13); SEGMENTED NEUTROPHILS % (MAN) 64 % (42-78); TOTAL CELLS COUNTED 100
[2017-11-11 09:16] LABS: ANISOCYTOSIS 2+; HYPOCHROMASIA 1+; PLATELET COMMENT ADEQUATE; POIKILOCYTOSIS 1+; TEAR DROP CELLS 1+
== END 2017-11-11 13:50 | disposition home or self-care (01) ==
LOC: II 07:42 → 5TH 07:53 → II 13:50
PROVIDERS: ATTEND Internal Medicine Hematology & Oncology
PROC: 3E04305 Introduction of Other Antineoplastic into Central Vein, Percutaneous Approach (ICD-10-PCS; principal; 2017-11-11)
PROC: 3E0433Z Introduction of Anti-inflammatory into Central Vein, Percutaneous Approach (ICD-10-PCS; 2017-11-11)
PROC: 3E043GC Introduction of Other Therapeutic Substance into Central Vein, Percutaneous Approach (ICD-10-PCS; 2017-11-11)
DX: Z51.11 Encounter for antineoplastic chemotherapy (principal); C81.98 Hodgkin lymphoma, unspecified, lymph nodes of multiple sites
CPT/HCPCS: 36415; 85025; 96411; 96413; 96367; 96375; J9000; J3490; J9130; J9040; J9360; J7050; J1100; J1453; J2469; 96360; 96374; 96409; 96415

== ENCOUNTER 2017-11-12 12:22 | Outpatient (CLI) | payer MEDICAID ==
[~2017-11-12 12:22] MED LIST changes: -BLEOMYCIN SULFATE 2 UNIT in NORMAL SALINE 50 ML IV PRN; -BLEOMYCIN SULFATE IV PRN; -DACARBAZINE IV PRN; -DEXAMETHASONE SOD PHOS INJ 10 MG/1 ML VIAL IV PRN; -DISPOSABLE IV PRN; -DOXORUBICIN HCL IV PRN; -FOSAPREPITANT DIMEGLUMINE 150 MG in NORMAL SALINE 150 ML IV PRN; -NORMAL SALINE 250 ML IV PRN; -NORMAL SALINE IV PRN; -PALONOSETRON 0.25 MG/5 ML SDV IV PRN; +PEGFILGRASTIM INJ 6 MG/0.6 ML DISP.SYRIN SUBCUT PRN; -VINBLASTINE SULFATE IV PRN
[2017-11-12 12:43] VITALS: BP 111/72
== END 2017-11-12 12:47 | disposition home or self-care (01) ==
LOC: II 12:22 → 5TH 12:24 → 4W 12:33 → II 12:47
PROVIDERS: ATTEND Internal Medicine Hematology & Oncology
PROC: 3E013GC Introduction of Other Therapeutic Substance into Subcutaneous Tissue, Percutaneous Approach (ICD-10-PCS; principal; 2017-11-12)
DX: Z76.89 Persons encountering health services in other specified circumstances (principal); C81.98 Hodgkin lymphoma, unspecified, lymph nodes of multiple sites; D70.1 Agranulocytosis secondary to cancer chemotherapy
CPT/HCPCS: 96372; J2505

== ENCOUNTER → 2017-11-23 | Outpatient (CLI) | payer SELFPAY ==
--- NOTE | 2017-11-24 08:27 | RADIOLOGY REPORT (SQ) ---
EXAM DESCRIPTION: PET CT SKULL/THIGH COMPLETED DATE/TIME: 11/23/2017 7:42 pm REASON FOR STUDY: LYMPHOMA C81.98 HODGKIN LYMPHOMA, UNSPECIFIED, LYMPH NODES OF MULTIPL COMPARISON: PET-CT [facility] 06/05/2017 RADIONUCLIDE AND DOSE: 11.2 mCi F18 FDG The route of agent administration: Intravenous FASTING BLOOD SUGAR: 113 mg/dl CONTRAST TYPE AND DOSE: No CT contrast given. TECHNIQUE: Blood glucose level was verified. Above dose of FDG was injected intravenously. 2-D seg mented attenuation correction images were obtained from the base of the skull to the midthighs. Nonc ontrast CT images were obtained for attenuation correction and fusion with emission images. CT image s were performed without oral or intravenous contrast and are not sensitive for parenchymal lesions. A series of overlapping emission PET images were obtained. Images reviewed and manipulated at [facility] work station by the radiologist. Images stored on PACS. LIMITATIONS: None. FINDINGS: HEAD AND NECK: No areas of abnormal metabolic activity in the soft tissues of the head and neck. CHEST: There is non metabolic scar in the periphery of the right upper lobe. The right paratracheal, bilateral hilar, and mediastinal adenopathy seen on prior PET-CT 06/05/2017 h as resolved. ABDOMEN AND PELVIS: No areas of abnormal metabolic activity in the abdomen or pelvis. Expected physi ologic activity is present in the genitourinary system and bowel. Spleen at 12 cm in length, SUV at baseline. PROXIMAL LOWER EXTREMITIES: No areas of abnormal metabolic activity in the soft tissues of the lower extremities. BONES: There is diffuse increased metabolic activity throughout the thoracic and lumbar spine, sternu m, pelvis, bilateral proximal humeri, bilateral proximal femurs. SUV ranges from [address] FINDINGS: Pacemaker. Right permanent central line tip superior vena cava OTHER: Liver background activity 2.1 SUV. Blood pool background activity 1.6 SUV IMPRESSION: Resolved hypermetabolic right peritracheal and right mediastinal adenopathy. Probable treatment induced response of patient's bone marrow. TECHNICAL DOCUMENTATION: JOB ID: [id number] [employer]- All Rights Reserved Reading location - IP/workstation name: [email or web address]
== END ==
LOC: RAD 16:45
PROVIDERS: ATTEND Internal Medicine Hematology & Oncology
DX: C81.98 Hodgkin lymphoma, unspecified, lymph nodes of multiple sites (principal)
CPT/HCPCS: 78815; A9552

== ENCOUNTER 2018-04-09 13:31 | Emergency (ER) | payer MEDICAID ==
--- NOTE | 2018-04-09 14:25 | ER Document Report ---
ED Medical Screen (RME) - General Chief Complaint: Chest Pain Stated Complaint: CHEST PAIN Time Seen by Provider: 04/09/18 14:23 TRAVEL OUTSIDE OF THE [place] IN LAST 30 DAYS: No - HPI Notes: 04/09/18 14:24 Patient with a pacemaker due to low heart rate on chemotherapy because of lymphoma coming in for epigastric and lower chest pain ongoing for the last 4 days states chest discomfort but no exacerbating or relieving factors - Related Data Allergies/Adverse Reactions: Penicillins Allergy (Unknown, Verified 04/09/18 14:04) Past Medical History - Social History Frequency of alcohol use: None Drug Abuse: Marijuana - Past Medical History Cardiac Medical History: Denies: Hx Coronary Artery Disease, Hx Heart Attack, Hx Hypertension Pulmonary Medical History: Denies: Hx Asthma, Hx Bronchitis, Hx COPD, Hx Pneumonia Neurological Medical History: Denies: Hx Cerebrovascular Accident, Hx Seizures Renal/ Medical History: Denies: Hx Peritoneal Dialysis Musculoskeltal Medical History: Denies Hx Arthritis Past Surgical History: Reports: Hx Cardiac Surgery - PACEMAKER, Hx Orthopedic Surgery - right shoulder, Hx Vascular Surgery - right chest wall port - Immunizations Hx Diphtheria, Pertussis, Tetanus Vaccination: No History of Influenza Vaccine for 03/2017 - 08/2017 Season: No Review of Systems - Review of Systems Cardiovascular: Chest pain Physical Exam - Vital signs Vitals: Temp Pulse BP Pulse Ox 98.7 F 99 133/85 H 97 04/09/18 13:57 04/09/18 13:57 04/09/18 13:57 04/09/18 13:57 - Respiratory Respiratory status: No respiratory distress Chest status: Nontender Breath sounds: Normal Chest palpation: Normal - Cardiovascular Rhythm: Regular Heart sounds: Normal auscultation Course - Vital Signs Vital signs: Temp Pulse Resp BP Pulse Ox 98.7 F 99 133/85 H 97 04/09/18 13:57 04/09/18 13:57 04/09/18 13:57 04/09/18 13:57 Doctor's Discharge - Discharge Referrals: HEATH GONZALES MD [Primary Care Provider] - Follow up as needed
--- NOTE | 2018-04-09 15:05 | RADIOLOGY REPORT (SQ) ---
EXAM DESCRIPTION: CHEST SINGLE VIEW COMPLETED DATE/TIME: 04/09/2018 2:48 pm REASON FOR STUDY: cp/sob COMPARISON: None. EXAM PARAMETERS: NUMBER OF VIEWS: One view. TECHNIQUE: Single frontal radiographic view of the chest acquired. RADIATION DOSE: NA LIMITATIONS: None. FINDINGS: LUNGS AND PLEURA: Mild scarring in the right upper lung laterally. MEDIASTINUM AND HILAR STRUCTURES: No masses. Contour normal. HEART AND VASCULAR STRUCTURES: Heart normal in size. Normal vasculature. BONES: No acute findings. HARDWARE: Injection port on the right. Pacemaker. OTHER: No other significant finding. IMPRESSION: NO ACUTE RADIOGRAPHIC FINDING IN THE CHEST. TECHNICAL DOCUMENTATION: JOB ID: [id number] [employer]- All Rights Reserved Reading location - IP/workstation name: [email or web address]
[2018-04-09 15:08] LABS: HEMATOCRIT 44.2 % (37.9-51.0); HEMOGLOBIN 15.1 g/dL (13.5-17.0); MEAN CORPUSCULAR HEMOGLOBIN 26.2 pg (27.0-33.4); MEAN CORPUSCULAR HGB CONC 34.2 g/dL (32.0-36.0); MEAN CORPUSCULAR VOLUME 77 fl (80-97); PLATELET COUNT 246 10^3/uL (150-450); RED BLOOD COUNT 5.77 10^6/uL (4.35-5.55); RED CELL DISTRIBUTION WIDTH 17.8 % (11.5-14.0); WHITE BLOOD COUNT 3.3 10^3/uL (4.0-10.5)
[2018-04-09 15:12] LABS: ALANINE AMINOTRANSFERASE 27 U/L (21-72); ALBUMIN 5.1 g/dL (3.5-5.0); ALKALINE PHOSPHATASE 90 U/L (38-126); ANION GAP 16 (5-19); ASPARTATE AMINO TRANSFERASE 25 U/L (17-59); BILIRUBIN,DIRECT 0.4 mg/dL (0.0-0.4); BILIRUBIN,TOTAL 1.1 mg/dL (0.2-1.3); BLOOD UREA NITROGEN 16 mg/dL (7-20); CALCIUM 10.5 mg/dL (8.4-10.2); CARBON DIOXIDE 22 mmol/L (22-30); CHLORIDE 106 mmol/L (98-107); CREATINE KINASE 42 U/L (55-170); GLUCOSE 92 mg/dL (75-110); LIPASE 44.8 U/L (23-300); POTASSIUM 4.5 mmol/L (3.6-5.0); SODIUM 144.2 mmol/L (137-145); TOTAL PROTEIN 8.1 g/dL (6.3-8.2)
[2018-04-09 15:14] LABS: INTERNATIONAL RATION (INR) 0.89; PROTHROMBIN TIME 12.5 SEC (11.4-15.4)
[2018-04-09 15:24] LABS: CREATINE KINASE MB < 0.22 ng/mL (<4.55); TROPONIN I < 0.012 ng/mL
[2018-04-09 15:47] LABS: ABSOLUTE LYMPHOCYTES# (MANUAL) 1.6 10^3/uL (0.5-4.7); ABSOLUTE MONOCYTES # (MANUAL) 0.3 10^3/uL (0.1-1.4); ABSOLUTE NEUTROPHILS# (MANUAL) 1.3 10^3/uL (1.7-8.2); ANISOCYTOSIS SLIGHT; BASOPHILS % (MANUAL) 2 % (0-2); EOSINOPHILS % (MANUAL) 1 % (0-6); LYMPHOCYTES % (MANUAL) 43 % (13-45); MONOCYTES % (MANUAL) 10 % (3-13); SEGMENTED NEUTROPHILS % (MAN) 40 % (42-78); TARGET CELLS SLIGHT; TOTAL CELLS COUNTED 100
[2018-04-09 15:48] LABS: PLATELET COMMENT ADEQUATE
--- NOTE | 2018-04-09 15:55 | ER Document Report ---
ED General - General Chief Complaint: Chest Pain Stated Complaint: CHEST PAIN Time Seen by Provider: 04/09/18 14:23 TRAVEL OUTSIDE OF THE [place] IN LAST 30 DAYS: No - HPI Notes: Patient is a 47-year-old male that presents to the emergency department for chief complaint of chest pain. Patient states for the last 4 days he has had intermittent episodes of chest discomfort. He describes it as the sensation that a balloon is feeling up in his epigastric and substernal region. He states he then burps her hiccups and the fullness is relieved. This occurs for 10 seconds at a time and happens frequently throughout the day. He states this has been continuing for 4 days which is why he came in. He denies any history of acid reflux or heart disease. He does eat fried foods and soda frequently. He denies any associated shortness of breath, diaphoresis, nausea or vomiting. He does have Hodgkin's lymphoma and his last chemotherapy was 2 weeks ago. He states he is now currently done with chemotherapy. Patient has a pacemaker and has had a negative stress test in July 2017. He states he has had multiple stress test and all of them have been negative. He denies any history of hypertension , diabetes, hyperlipidemia or tobacco use. Past Medical History:lymphoma Past Surgical History: Permacath, pacemaker, rotator cuff surgery Social History: Daily marijuana. Denies tobacco. Denies alcohol. Family History: Reviewed and noncontributory for presenting illness Allergies: Reviewed, see documented allergy list. REVIEW OF SYSTEMS: CONSTITUTIONAL : No fever No chills No diaphoresis No recent illness EENT: No vision changes No congestion No sore throat CARDIOVASCULAR: chest pain No palpitations RESPIRATORY: No shortness of breath No cough No difficulty breathing GASTROINTESTINAL: No abdominal pain No nausea No vomiting No diarrhea GENITOURINARY: No dysuria No hematuria No difficulty urinating MUSCULOSKELETAL: No back pain No leg pain No arm pain SKIN: No rashes No lesions LYMPHATIC: No swollen, enlarged glands. NEUROLOGICAL: No lightheadedness No headache No weakness No paresthesias PSYCHIATRIC: No anxiety No depression PHYSICAL EXAMINATION: Vital signs reviewed, nursing noted reviewed. GENERAL: Well-appearing, well-nourished and in no acute distress. HEAD: Atraumatic, normocephalic. EYES: Eyes appear normal, extraocular movements intact, sclera anicteric, conjunctiva are normal. ENT: nares patent, oropharynx clear without exudates. Moist mucous membranes. NECK: Normal range of motion, supple without lymphadenopathy LUNGS: Breath sounds clear to auscultation bilaterally and equal. No wheezes rales or rhonchi. HEART: Regular rate and rhythm without murmurs ABDOMEN: Soft, nontender, normoactive bowel sounds. No rebound, guarding, or rigidity. No masses appreciated. EXTREMITIES: Nontender, good range of motion, no pitting or edema. NEUROLOGICAL: No focal neurological deficits. Moves all extremities spontaneously Motor and sensory grossly intact on exam. PSYCH: Normal mood, normal affect. SKIN: Warm, Dry, normal turgor, no rashes or lesions noted on exposed skin - Related Data Allergies/Adverse Reactions: Penicillins Allergy (Unknown, Verified 04/09/18 14:04) Past Medical History - Social History Smoking Status: Never Smoker Frequency of alcohol use: None Drug Abuse: Marijuana Family History: Reviewed & Not Pertinent Patient has suicidal ideation: No Patient has homicidal ideation: No - Past Medical History Cardiac Medical History: Denies: Hx Coronary Artery Disease, Hx Heart Attack, Hx Hypertension Pulmonary Medical History: Denies: Hx Asthma, Hx Bronchitis, Hx COPD, Hx Pneumonia Neurological Medical History: Denies: Hx Cerebrovascular Accident, Hx Seizures Renal/ Medical History: Denies: Hx Peritoneal Dialysis Musculoskeletal Medical History: Denies Hx Arthritis Past Surgical History: Reports: Hx Cardiac Surgery - PACEMAKER, Hx Orthopedic Surgery - right shoulder, Hx Vascular Surgery - right chest wall port - Immunizations Hx Diphtheria, Pertussis, Tetanus Vaccination: No Review of Systems - Review of Systems Notes: Dictated Physical Exam - Vital signs Vitals: Temp Pulse BP Pulse Ox 98.7 F 99 133/85 H 97 04/09/18 13:57 04/09/18 13:57 04/09/18 13:57 04/09/18 13:57 - Notes Notes: Dictated Course - Re-evaluation Re-evalutation: 04/09/18 15:52 Vitals reviewed. Nursing notes reviewed. EKG shows no acute ischemia. Patient is currently asymptomatic. He has been having symptoms for 4 days and the only last a few seconds at a time. This is atypical for ACS. His heart score is 1 putting him at low risk. I did offer him a delta troponin which he has declined. Patient was counseled on dietary changes and given omeprazole for symptomatic treatment. He was told to follow closely with his primary care doctor for reevaluation and possibly repeat stress test in the following week. He will return to the emergency room for any new or worsening symptoms. Patient discharged home asymptomatic and stable. Laboratory 04/09/18 04/09/18 04/09/18 14:32 14:32 14:32 WBC 3.3 L RBC 5.77 H Hgb 15.1 Hct 44.2 MCV 77 L MCH 26.2 L MCHC 34.2 RDW 17.8 H Plt Count 246 Total Counted 100 Seg Neutrophils % Not Reportable Seg Neuts % (Manual) 40 L Lymphocytes % Not Reportable Lymphocytes % (Manual) 43 Atypical Lymphs % 4 Monocytes % Not Reportable Monocytes % (Manual) 10 Eosinophils % Not Reportable Eosinophils % (Manual) 1 Basophils % Not Reportable Basophils % (Manual) 2 Absolute Neutrophils Not Reportable Abs Neuts (Manual) 1.3 L Absolute Lymphocytes Not Reportable Abs Lymphs (Manual) 1.6 Absolute Monocytes Not Reportable Abs Monocytes (Manual) 0.3 Absolute Eosinophils Not Reportable Absolute Eos (Manual) 0.0 Absolute Basophils Not Reportable Abs Basophils (Manual) 0.1 Platelet Comment ADEQUATE Anisocytosis SLIGHT Target Cells SLIGHT PT 12.5 INR 0.89 Sodium 144.2 Potassium 4.5 Chloride 106 Carbon Dioxide 22 Anion Gap 16 BUN 16 Creatinine 0.84 Est GFR ( Amer) > 60 Est GFR (Non-Af Amer) > 60 Glucose 92 Calcium 10.5 H Total Bilirubin 1.1 Direct Bilirubin 0.4 Neonat Total Bilirubin Not Reportable Neonat Direct Bilirubin Not Reportable Neonat Indirect Bili Not Reportable AST 25 ALT 27 Alkaline Phosphatase 90 Creatine Kinase 42 L CK-MB (CK-2) Troponin I Total Protein 8.1 Albumin 5.1 H Lipase 44.8 04/09/18 14:32 WBC RBC Hgb Hct MCV MCH MCHC RDW Plt Count Total Counted Seg Neutrophils % Seg Neuts % (Manual) Lymphocytes % Lymphocytes % (Manual) Atypical Lymphs % Monocytes % Monocytes % (Manual) Eosinophils % Eosinophils % (Manual) Basophils % Basophils % (Manual) Absolute Neutrophils Abs Neuts (Manual) Absolute Lymphocytes Abs Lymphs (Manual) Absolute Monocytes Abs Monocytes (Manual) Absolute Eosinophils Absolute Eos (Manual) Absolute Basophils Abs Basophils (Manual) Platelet Comment Anisocytosis Target Cells PT INR Sodium Potassium Chloride Carbon Dioxide Anion Gap BUN Creatinine Est GFR ( Amer) Est GFR (Non-Af Amer) Glucose Calcium Total Bilirubin Direct Bilirubin Neonat Total Bilirubin Neonat Direct Bilirubin Neonat Indirect Bili AST ALT Alkaline Phosphatase Creatine Kinase CK-MB (CK-2) < 0.22 Troponin I < 0.012 Total Protein Albumin Lipase Chest X-Ray 04/09/18 14:23 IMPRESSION: NO ACUTE RADIOGRAPHIC FINDING IN THE CHEST. - Vital Signs Vital signs: Temp Pulse Resp BP Pulse Ox 98.7 F 99 18 133/85 H 97 04/09/18 13:57 04/09/18 13:57 04/09/18 14:51 04/09/18 13:57 04/09/18 14:58 - Laboratory Result Diagrams: 04/09/18 14:32 04/09/18 14:32 Laboratory results interpreted by me: 04/09/18 04/09/18 14:32 14:32 WBC 3.3 L RBC 5.77 H MCV 77 L MCH 26.2 L RDW 17.8 H Seg Neuts % (Manual) 40 L Abs Neuts (Manual) 1.3 L Calcium 10.5 H Creatine Kinase 42 L Albumin 5.1 H - EKG Interpretation by Me Additional EKG results interpreted by me: 04/09/18 15:53 Interpreted by myself [id number]: sinus arrhythmia, rate 75, normal axis, no ectopy, no ST elevation Discharge - Discharge Clinical Impression: Chest pain Qualifiers: Chest pain type: unspecified Qualified Code(s): R07.9 - Chest pain, unspecified Condition: Stable Disposition: HOME, SELF-CARE Instructions: Prilosec (Acid Pump Inhibitor) ([facility]), Chest Pain of Unclear Cause ([facility]) Additional Instructions: Please return to the emergency department if you have any worsening, or concern of your symptoms. Please return to the emergency department if you develop chest pain, difficulty breathing, severe abdominal pain, or ongoing vomiting. Please follow-up with your primary care physician in 2-3 days and any other recommended physicians. If prescribed, take all medications as directed. If you have any questions or concerns do not hesitate to return the emergency department for evaluation. [] Prescriptions: Omeprazole 40 mg PO DAILY #30 capsule.dr Referrals: HEATH GONZALES MD [Primary Care Provider] - Follow up in 3-5 days
[2018-04-09 15:59] VITALS: BP 123/95
--- NOTE | 2018-04-09 21:51 | EKG REPORT ---
SEVERITY:- OTHERWISE NORMAL ECG - SINUS ARRHYTHMIA, RATE [id number] APC : Confirmed by: Chester Gerard 09-Apr-2018 21:50:18
== END 2018-04-09 16:06 | disposition home or self-care (01) ==
LOC: ER 13:31
DX: R07.9 Chest pain, unspecified (principal); Z95.0 Presence of cardiac pacemaker; Z85.72 Personal history of non-Hodgkin lymphomas; Z88.0 Allergy status to penicillin; F12.10 Cannabis abuse, uncomplicated
CPT/HCPCS: 36415; 71045; 80053; 82550; 82553; 83690; 84484; 85025; 85610; 93005; 93010; 99285

== ENCOUNTER → 2018-04-26 | Outpatient (CLI) | payer MEDICAID ==
--- NOTE | 2018-04-27 12:34 | RADIOLOGY REPORT (SQ) ---
EXAM DESCRIPTION: PET CT SKULL/THIGH COMPLETED DATE/TIME: 04/26/2018 9:41 pm REASON FOR STUDY: LYMPHOMA C81.98 HODGKIN LYMPHOMA, UNSPECIFIED, LYMPH NODES OF MULTIPL COMPARISON: PET-CT 11/23/2017 RADIONUCLIDE AND DOSE: 10.1 mCi F18 FDG The route of agent administration: Intravenous FASTING BLOOD SUGAR: 122 mg/dl CONTRAST TYPE AND DOSE: No CT contrast given. TECHNIQUE: Blood glucose level was verified. Above dose of FDG was injected intravenously. 2-D seg mented attenuation correction images were obtained from the base of the skull to the midthighs. Nonc ontrast CT images were obtained for attenuation correction and fusion with emission images. CT image s were performed without oral or intravenous contrast and are not sensitive for parenchymal lesions. A series of overlapping emission PET images were obtained. Images reviewed and manipulated at [facility] work station by the radiologist. Images stored on PACS. LIMITATIONS: None. FINDINGS: HEAD AND NECK: No areas of abnormal metabolic activity in the soft tissues of the head and neck. CHEST: No areas of abnormal metabolic activity in the chest. Specifically, no mediastinal adenopathy is identified. There is artifactual increased activity along the upper trapezius muscles of doubtfu l significance ABDOMEN AND PELVIS: No areas of abnormal metabolic activity in the abdomen or pelvis. Expected physi ologic activity is present in the genitourinary system and bowel. Normal size spleen with activity j ust above blood pool, SUV 1.7. PROXIMAL LOWER EXTREMITIES: No areas of abnormal metabolic activity in the soft tissues of the lower extremities. BONES: No abnormal metabolic activity in the visualized skeleton. ADDITIONAL CT FINDINGS: Left-sided dual lead pacemaker. Right permanent central line tip superior ve na cava OTHER: Liver background activity 2.2 SUV. Blood pool background activity 1.6 SUV IMPRESSION: No PET-CT evidence of residual or recurrent lymphoma TECHNICAL DOCUMENTATION: JOB ID: [id number] [employer]- All Rights Reserved Reading location - IP/workstation name: [email or web address]
== END ==
LOC: RAD 15:48
PROVIDERS: ATTEND Internal Medicine Hematology & Oncology
DX: C81.98 Hodgkin lymphoma, unspecified, lymph nodes of multiple sites (principal)
CPT/HCPCS: 78815; A9552